=== PATIENT | female | born 1995 | race American Indian/Alaskan Native ===

== ENCOUNTER 2021-09-02 22:54 | Emergency (ER) | payer SELFPAY ==
[2021-09-02 23:03] VITALS: BP 128/82
== END 2021-09-03 05:30 | disposition left against medical advice (07) ==
LOC: ED 22:54
DX: R10.9 Unspecified abdominal pain (principal); Z53.21 Procedure and treatment not carried out due to patient leaving prior to being seen by health care provider

== ENCOUNTER 2021-09-09 23:53 | Emergency (ER) | payer SELFPAY ==
[2021-09-10 01:54] VITALS: BP 160/122
== END 2021-09-10 10:58 | disposition left against medical advice (07) ==
LOC: ED 23:53
DX: R10.9 Unspecified abdominal pain (principal); Z53.21 Procedure and treatment not carried out due to patient leaving prior to being seen by health care provider